=== PATIENT | male | born 1990 | race Native Hawaiian/Other Pacific Islander ===

== ENCOUNTER 2019-06-03 11:15 | Observation (INO) | payer OTHER ==
[~2019-06-03] VITALS: Ht 165.1 cm; Wt 206.2 kg
[2019-06-03 11:20] VITALS: BP 114/65; TEMP 97.5
[2019-06-03 11:53] LABS: PLATELET COUNT 231 K/uL (142-355)
[2019-06-03 12:18] LABS: POTASSIUM 3.9 mmol/L (3.6-5.2)
[2019-06-03 12:30] VITALS: BP 109/67
[2019-06-03 13:30] VITALS: BP 111/63; TEMP 97.6
[2019-06-03 15:34] VITALS: BP 120/69; TEMP 97.7; Ht 165.1 cm; Wt 206.2 kg
[2019-06-03 16:00] VITALS: BP 120/69; TEMP 97.7
[2019-06-03 20:12] VITALS: BP 123/58; TEMP 97.8
[2019-06-04] VITALS: BP 139/69; TEMP 97.7
[2019-06-04 04:06] VITALS: BP 116/68; TEMP 99.33
[2019-06-04 05:33] LABS: PLATELET COUNT 197 K/uL (142-355)
[2019-06-04 05:42] LABS: POTASSIUM 4.8 mmol/L (3.6-5.2)
[2019-06-04 08:00] VITALS: BP 156/80; TEMP 97.4
[2019-06-04 12:00] VITALS: BP 119/61; TEMP 97.5
[2019-06-04 16:00] VITALS: BP 112/57; TEMP 98.2
[2019-06-04 20:00] VITALS: BP 125/88; TEMP 98.2
[2019-06-05] VITALS: BP 134/71; TEMP 97.8
[2019-06-05 04:00] VITALS: BP 144/22; TEMP 98.6
[2019-06-05 05:36] LABS: PLATELET COUNT 207 K/uL (142-355)
[2019-06-05 08:00] VITALS: BP 115/68; TEMP 98.2
[2019-06-05 12:00] VITALS: BP 126/72; TEMP 97.5
[2019-06-05] MEDS ORDERED: CLINDAMYCIN HC150 MG PO (15:48)
[2019-06-05 16:00] VITALS: BP 131/76; TEMP 98.4
== END 2019-06-06 04:56 | disposition home or self-care (01) ==
LOC: ED 11:15 → MED/SURG 12:55
PROVIDERS: Internal Medicine; ADMIT Family Medicine
DX: L03.115 Cellulitis of right lower limb (principal); E66.01 Morbid (severe) obesity due to excess calories; Z68.45 Body mass index [BMI] 70 or greater, adult; D72.828 Other elevated white blood cell count
CPT/HCPCS: 36415; 80053; 81000; 83605; 85027; 87040; 96365; 96366; 96367; 96372; 96374; 96375; 99220; 99284; G0378; J1650; J2543; J2930; J3490

== ENCOUNTER 2019-06-13 11:55 | Emergency (ER) | payer OTHER ==
[~2019-06-13] VITALS: Ht 165.1 cm; Wt 202.3 kg
[~2019-06-13 11:55] MED LIST: CLINDAMYCIN HC150 MG PO
[2019-06-13 12:00] VITALS: TEMP 97.2
[2019-06-13 13:07] LABS: PLATELET COUNT 362 K/uL (142-355)
[2019-06-13 13:13] LABS: POTASSIUM 4.7 mmol/L (3.6-5.2)
[2019-06-13 18:20] VITALS: BP 160/97
== END 2019-06-13 18:20 | disposition home or self-care (01) ==
LOC: ED 11:55
PROVIDERS: Family Medicine
DX: L03.115 Cellulitis of right lower limb (principal)
CPT/HCPCS: 80053; 85027; 87070; 87077; 87186; 87205; 96361; 96365; 99284; J0696

== ENCOUNTER 2019-07-04 13:40 | Emergency (ER) | payer OTHER ==
[~2019-07-04] VITALS: Ht 165.1 cm; Wt 202.3 kg
[2019-07-04 13:59] VITALS: BP 128/65; TEMP 98
== END 2019-07-04 17:18 | disposition home or self-care (01) ==
LOC: ED 13:40
DX: L03.115 Cellulitis of right lower limb (principal)
CPT/HCPCS: 99282

== ENCOUNTER 2021-07-13 03:32 | Emergency (ER) | payer OTHER ==
[~2021-07-13] VITALS: Ht 165.1 cm; Wt 248.6 kg
[2021-07-13 04:10] VITALS: BP 159/62; TEMP 97.8
== END 2021-07-13 04:10 | disposition home or self-care (01) ==
LOC: ED 03:32
DX: S20.211A Contusion of right front wall of thorax, initial encounter (principal); D22.5 Melanocytic nevi of trunk; W22.8XXA Striking against or struck by other objects, initial encounter; Y92.89 Other specified places as the place of occurrence of the external cause
CPT/HCPCS: 99281

== ENCOUNTER 2022-03-27 08:28 | Emergency (ER) | payer OTHER ==
[~2022-03-27] VITALS: Ht 165.1 cm; Wt 254.0 kg
[2022-03-27 08:35] VITALS: BP 169/91; TEMP 98.1
== END 2022-03-27 10:28 | disposition home or self-care (01) ==
LOC: ED 08:28
DX: M10.9 Gout, unspecified (principal)
CPT/HCPCS: 84550; 99283

== ENCOUNTER 2022-07-03 18:19 | Emergency (ER) | payer OTHER ==
[~2022-07-03] VITALS: Ht 165.1 cm; Wt 254.0 kg
== END 2022-07-03 21:06 | disposition home or self-care (01) ==
LOC: ED 18:19
DX: M25.572 Pain in left ankle and joints of left foot (principal)
CPT/HCPCS: 36415; 84550; 99283

== ENCOUNTER 2022-12-06 22:21 | Emergency (ER) | payer OTHER ==
[~2022-12-06] VITALS: Ht 165.1 cm; Wt 231.3 kg
[2022-12-06 22:35] VITALS: BP 144/72; TEMP 98.2
== END 2022-12-06 23:41 | disposition home or self-care (01) ==
LOC: ED 22:21
DX: S91.311A Laceration without foreign body, right foot, initial encounter (principal); W26.0XXA Contact with knife, initial encounter
CPT/HCPCS: 90715; 99283